=== PATIENT | male | born 1990 | race Caucasian/White ===

== ENCOUNTER 2024-07-17 20:50 | Observation (INO) | payer BC, OTHER ==
[2024-07-17 20:58] VITALS: RESP 18
[2024-07-17] MEDS ORDERED: CEFAZOLIN SODIUM 2 GM VIAL ONE (22:10)
[2024-07-17] MEDS ORDERED: DEXTROSE 5%-WATER 100 ML IVPB ONE (22:15)
[2024-07-17 22:20] LABS: BASO % 0.5 % (0-2.0); EOS % 1.8 % (0-4.5); HEMATOCRIT 42.8 % (35.4-49); HEMOGLOBIN 14.5 GM/dL (11.7-16.9); LYMPH % 15.8 % (8-40); MCH 29.9 pg (25.7-33.7); MCHC 33.7 g/dl (32.0-35.9); MEAN CELL VOLUME 88.6 fl (80-96); MEAN PLT VOLUME 7.9 fl (7.5-11.1); MONO % 6.4 % (3.8-10.2); NEUT % 75.5 % (42.8-82.8); PLATELET COUNT 251 10^3/uL (134-434); RBC 4.83 M/mm3 (4.00-5.60); RDW 13.5 % (11.9-15.9); WHITE BLOOD COUNT 15.1 K/mm3 (4.0-10.0)
[2024-07-17] MEDS: CEFAZOLIN SODIUM 2 GM in DEXTROSE 5%-WATER 100 ML IVPB ONE (22:25)
[2024-07-17 22:41] LABS: CALCIUM 9.7 mg/dL (8.5-10.1)
[2024-07-17 22:42] LABS: ALBUMIN 4.5 g/dl (3.4-5.0); BLOOD UREA NITROGEN 16.8 mg/dL (7-18); MAGNESIUM 2.1 mg/dL (1.8-2.4)
[2024-07-17 22:45] LABS: CREATININE 0.9 mg/dL (0.55-1.3)
[2024-07-17 22:47] LABS: BILIRUBIN,TOTAL 0.4 mg/dL (0.2-1); TOT PROT 7.5 g/dl (6.4-8.2)
[2024-07-17 23:05] LABS: ERYTHROCYTE SEDIMENTATION RATE 6 mm/hr (0-10)
[2024-07-17 23:58] LABS: HIV INTERPRETATION NEGATIVE (NEGATIVE)
[2024-07-18] MEDS ORDERED: NICOTINE 7 MG/24 HOURS TOPICAL PATCH TD ONE (08:00)
[2024-07-18] MEDS ORDERED: ENOXAPARIN NA (PORCINE) 40 MG/0.4 ML DISP.SYRIN SQ ONE (08:00)
[2024-07-18] MEDS ORDERED: SILVER SULFADIAZINE 1% TOP CREAM 50 GM JAR TP ONE (08:00)
[2024-07-18] MEDS: DIPHTH,PERTUSS(ACELL),TET 0.5 ML DISP.SYRIN IM ONE (08:22)
[2024-07-18] MEDS: CEFAZOLIN SODIUM 2 GM VIAL IVPB SCH (08:24)
[2024-07-18] MEDS ORDERED: CEFAZOLIN 2 GM/D5W 2 GM/50 ML ML IVPB SCH ×2 (08:30→18:00)
[2024-07-18 10:01] LABS: HEMATOCRIT 44.1 % (35.4-49); MCHC 33.9 g/dl (32.0-35.9); MEAN CELL VOLUME 88.5 fl (80-96); MEAN PLT VOLUME 7.6 fl (7.5-11.1); PLATELET COUNT 238 10^3/uL (134-434); RBC 4.99 M/mm3 (4.00-5.60); WHITE BLOOD COUNT 8.2 K/mm3 (4.0-10.0)
[2024-07-18 10:40] LABS: POTASSIUM 4.4 mmol/L (3.5-5.1)
[2024-07-18] MEDS: SILVER SULFADIAZINE 1% TOP CREAM 50 GM JAR TP SCH (10:40)
[2024-07-18] MEDS: ENOXAPARIN NA (PORCINE) 40 MG/0.4 ML DISP.SYRIN SQ SCH (10:40)
[2024-07-18] MEDS: NICOTINE 7 MG/24 HOURS TOPICAL PATCH TD SCH (10:40)
[2024-07-18 11:08] LABS: ALBUMIN 4.3 g/dl (3.4-5.0); BLOOD UREA NITROGEN 12.2 mg/dL (7-18); CALCIUM 9.6 mg/dL (8.5-10.1); MAGNESIUM 2.3 mg/dL (1.8-2.4)
[2024-07-18 11:11] LABS: PHOSPHOROUS 3.2 mg/dL (2.5-4.9)
[2024-07-18 11:12] LABS: CREATININE 0.8 mg/dL (0.55-1.3)
[2024-07-18 11:13] LABS: BILIRUBIN,TOTAL 0.6 mg/dL (0.2-1); TOT PROT 7.6 g/dl (6.4-8.2)
[2024-07-18] MEDS: VANCOMYCIN PREMIX 1.5 GM 1,500 MG/300 ML BAG IVPB ONE (14:53)
[2024-07-18] MEDS ORDERED: ceFAZolin SODIUM 1 GM VIAL ONE (18:31)
[2024-07-18] MEDS: CEFAZOLIN 1 GM in DEXTROSE 5%-WATER - 50 ML IVPB SCH (18:36)
[2024-07-19 02:31] VITALS: BMI 29.9
[2024-07-19] MEDS: VANCOMYCIN PREMIX 1.5 GM 1,500 MG/300 ML BAG IVPB ONE (08:54)
[2024-07-19 10:09] VITALS: BP 112/81; PULSE 73; TEMP 97.9
== END 2024-07-19 12:35 | disposition home or self-care (01) ==
LOC: JER 20:50 → UNDOADMOB 07-18 00:44 → INTOOBSV 07-18 00:44 → JERBED 07-18 00:44 → J6S 07-18 20:35
PROVIDERS: ADMIT Internal Medicine; ATTEND Internal Medicine
PROC: 3E03329 Introduction of Other Anti-infective into Peripheral Vein, Percutaneous Approach (ICD-10-PCS; principal; 2024-07-18)
PROC: 3E023GC Introduction of Other Therapeutic Substance into Muscle, Percutaneous Approach (ICD-10-PCS; 2024-07-18)
PROC: 3E0234Z Introduction of Serum, Toxoid and Vaccine into Muscle, Percutaneous Approach (ICD-10-PCS; 2024-07-18)
DX: L03.114 Cellulitis of left upper limb (principal); B95.8 Unspecified staphylococcus as the cause of diseases classified elsewhere; T65.91XA Toxic effect of unspecified substance, accidental (unintentional), initial encounter; L29.9 Pruritus, unspecified; F17.200 Nicotine dependence, unspecified, uncomplicated; T22.412A Corrosion of unspecified degree of left forearm, initial encounter; Y92.89 Other specified places as the place of occurrence of the external cause; Y99.9 Unspecified external cause status; Z23 Encounter for immunization
CPT/HCPCS: 36415; 73090-TC-LT-FY; 80053; 83735; 84100; 85025; 85027; 85651; 86140; 86803; 87389; 90471; 90715; 93005; 93010; 96365; 96366; 96367; 96372; 96375; 99285-25; G0378